=== PATIENT | female | born 1960 | race Caucasian/White ===

== ENCOUNTER 2018-04-09 18:29 | Emergency (ER) | payer OTHER ==
[~2018-04-09] VITALS: Ht 167.6 cm; Wt 68.0 kg
[2018-04-09] MEDS ORDERED: LIPITOR20 MG (20:33)
[2018-04-09] MEDS ORDERED: ASPIR 8181 MG (20:33)
== END 2018-04-09 23:42 | disposition home or self-care (01) ==
LOC: ER 18:29
DX: K29.60 Other gastritis without bleeding (principal)